=== PATIENT | female | born 1950 | race Asian ===

== ENCOUNTER 2016-09-30 12:12 | Emergency (ER) | payer OTHER ==
[~2016-09-30] VITALS: Ht 157.5 cm; Wt 84.4 kg
[~2016-09-30 12:12] MED LIST: METF100038 PO; METF500T PO; SIMV20TA2 PO; TRAM50TA PO
[2016-09-30 12:25] VITALS: BP 156/61; TEMP 98.9
[2016-09-30 12:50] LABS: PLATELET COUNT 172 K/uL (152-353)
[2016-09-30 12:59] LABS: POTASSIUM 3.3 mmol/L (3.6-5.2); SODIUM 134 mmol/L (136-145)
== END 2016-09-30 13:35 | disposition home or self-care (01) ==
LOC: ED 12:12
DX: J06.9 Acute upper respiratory infection, unspecified (principal)
CPT/HCPCS: 36415; 80053; 83036; 85027; 87077; 87081; 87185; 87186; 87804; 87880; 99283

== ENCOUNTER 2017-11-17 16:14 | Emergency (ER) | payer OTHER ==
[~2017-11-17] VITALS: Ht 157.5 cm; Wt 84.4 kg
[2017-11-17 16:25] VITALS: TEMP 99.3
[2017-11-17] MEDS ORDERED: LANTUS100 MG/ML SC (16:45)
[2017-11-17] MEDS ORDERED: TAMIFLU75 MG OR (16:47)
[2017-11-17] MEDS ORDERED: VICTOZA18 MG/3 ML SC (16:47)
[2017-11-17 17:50] LABS: PLATELET COUNT 183 K/uL (152-353)
[2017-11-17 18:00] LABS: POTASSIUM 4.4 mmol/L (3.6-5.2)
[2017-11-17 19:11] VITALS: BP 129/72
== END 2017-11-17 19:12 | disposition home or self-care (01) ==
LOC: ED 16:14
DX: B34.9 Viral infection, unspecified (principal)
CPT/HCPCS: 36415; 80053; 85027; 87081; 87804; 87880; 99283

== ENCOUNTER 2021-01-13 12:10 | Emergency (ER) | payer OTHER ==
[~2021-01-13] VITALS: Ht 157.5 cm; Wt 78.9 kg
[2021-01-13 12:10] VITALS: TEMP 98
[~2021-01-13 12:10] MED LIST changes: +LANTUS100 MG/ML SC; +TAMIFLU75 MG OR; +VICTOZA18 MG/3 ML SC
[2021-01-13 14:09] VITALS: BP 178/82
== END 2021-01-13 14:09 | disposition home or self-care (01) ==
LOC: ED 12:18
DX: S46.812A Strain of other muscles, fascia and tendons at shoulder and upper arm level, left arm, initial encounter (principal); S76.012A Strain of muscle, fascia and tendon of left hip, initial encounter; S86.812A Strain of other muscle(s) and tendon(s) at lower leg level, left leg, initial encounter; V49.40XA Driver injured in collision with unspecified motor vehicles in traffic accident, initial encounter; Y92.488 Other paved roadways as the place of occurrence of the external cause
CPT/HCPCS: 99283

== ENCOUNTER 2021-02-09 16:49 | Outpatient (CLI) | payer OTHER | END 2021-02-09 21:38 | disposition home or self-care (01) | LOC: CT 16:49 | PROVIDERS: ATTEND Nurse Practitioner Primary Care | DX: R51.9 Headache, unspecified (principal) ==

== ENCOUNTER 2023-04-26 13:32 | Outpatient (CLI) | payer OTHER | END 2023-04-26 21:54 | disposition home or self-care (01) | LOC: MAMMO 13:32 | PROVIDERS: ATTEND Nurse Practitioner Family | DX: Z12.31 Encounter for screening mammogram for malignant neoplasm of breast (principal); Z78.0 Asymptomatic menopausal state ==